=== PATIENT | female | born 1960 | race Caucasian/White ===

== ENCOUNTER → 2016-11-25 | Outpatient (REF) | payer OTHER ==
[2016-11-27 00:06] LABS: Lyme Disease IgG/IgM Antibodie <0.91 ISR (0.00-0.90); Lyme Disease IgM Ab Quantitati <0.80 index (0.00-0.79)
== END ==
LOC: M LAB REF 13:14
PROVIDERS: ATTEND Nurse Practitioner Adult Health
DX: R50.9 Fever, unspecified (principal)

== ENCOUNTER → 2018-12-04 | Outpatient (REF) | payer OTHER | LOC: M LAB LCGH 11:42 | PROVIDERS: ATTEND Nurse Practitioner Adult Health | DX: Z12.4 Encounter for screening for malignant neoplasm of cervix (principal) ==

== ENCOUNTER 2019-07-16 11:33 | Day surgery (SDC) | payer OTHER ==
[~2019-07-16] VITALS: Ht 162.6 cm; Wt 59.9 kg
[~2019-07-16 11:33] MED LIST: B COTAB3 PO; CENT1TAB PO; CITRTAB18 PO; CVS1CAP2 PO; DIPH25CA32 PO; ESTR1CRE VA; MESA1000 PR; NS 1,000 ML IV ONE; QC A10TA PO; RANI1TAB38 PO; REFR0.5D8 OP; SIMILASAN OP; SM F10002 PO; [UNRECOGNIZED DRUG - CODE] OP
--- NOTE | 2019-07-16 13:08 | ROOR ---
Patient Name: Shawna Bravo Procedure Date: 07/16/2019 12:50 PM Date of : 1960 Age: 58 Room: [facility] Gender: Female Note Status: Finalized Procedure: Upper GI endoscopy Indications: Heartburn Providers: Jeffrey SARAVIA MD Referring MD: China Ortiz NP Requesting Provider: Medicines: Monitored Anesthesia Care Complications: No immediate complications. Procedure: Pre-Anesthesia Assessment: - The heart rate, respiratory rate, oxygen saturations, blood pressure, adequacy of pulmonary ventilation, and response to care were monitored throughout the procedure. The Endoscope was introduced through the mouth, and advanced to the second part of duodenum. The upper GI endoscopy was accomplished without difficulty. The patient tolerated the procedure well. Findings: The esophagus was normal. The stomach was normal. The examined duodenum was normal. Impression: - Normal esophagus. - Normal stomach. - Normal examined duodenum. - No specimens collected. Recommendation: - Observe patient's clinical course. - Continue present medications. Jeffrey Saravia MD Jeffrey SARAVIA MD 07/16/2019 1:08:24 PM Electronically signed by Jeffrey SARAVIA MD Number of Addenda: 0 Note Initiated On: 07/16/2019 12:50 PM Estimated Blood Loss: Estimated blood loss: none.
[2019-07-16] MEDS ORDERED: LIDOCAINE 2% INJ 100 MG/5 ML SDV (FOR ANES.) As Ordered ONE (13:11)
[2019-07-16] MEDS ORDERED: PROPOFOL 200 MG/20 ML VIAL As Ordered ONE ×2 (13:11→13:15)
--- NOTE | 2019-07-16 13:35 | ROOR ---
Patient Name: Shawna Bravo Procedure Date: 07/16/2019 12:51 PM Date of : 1960 Age: 58 Room: [facility] Gender: Female Note Status: Finalized Procedure: Colonoscopy Indications: Screening for colorectal malignant neoplasm. (Incidental: History of ulcerative proctitis) Providers: Jeffrey SARAVIA MD Referring MD: China Ortiz NP Requesting Provider: Medicines: Monitored Anesthesia Care Complications: No immediate complications. Procedure: Pre-Anesthesia Assessment: - The heart rate, respiratory rate, oxygen saturations, blood pressure, adequacy of pulmonary ventilation, and response to care were monitored throughout the procedure. The Colonoscope was introduced through the anus and advanced to 10 cm into the ileum. The colonoscopy was performed without difficulty. The patient tolerated the procedure well. The quality of the bowel preparation was adequate and fair. Findings: The perianal and digital rectal examinations were normal. The colon (entire examined portion) was redundant. Multiple medium-mouthed diverticula were found in the sigmoid colon and descending colon. Internal hemorrhoids were found during retroflexion. The hemorrhoids were medium-sized. The exam was otherwise without abnormality on direct and retroflexion views. Biopsies for histology were taken with a cold forceps from the entire colon for evaluation of microscopic colitis. Biopsies were taken with a cold forceps in the rectum for histology. Impression: - Preparation of the colon was fair. - Redundant colon. - Diverticulosis in the sigmoid colon and in the descending colon. - Internal hemorrhoids. - The examination was otherwise normal on direct and retroflexion views. - Ulcerative proctitis is in remission. - Biopsies were taken with a cold forceps from the entire colon and rectum. Recommendation: - Telephone endoscopist for pathology results in 2 weeks. - Repeat colonoscopy in 10 years for screening purposes. Jeffrey Saravia MD Jeffrey SARAVIA MD 07/16/2019 1:34:34 PM Electronically signed by Jeffrey SARAVIA MD Number of Addenda: 0 Note Initiated On: 07/16/2019 12:51 PM Estimated Blood Loss: Estimated blood loss: none.
[2019-07-16 14:00] VITALS: BP 129/62
== END 2019-07-16 14:22 | disposition home or self-care (01) ==
LOC: M OPP 11:33
PROVIDERS: ATTEND Internal Medicine Gastroenterology
DX: Z12.11 Encounter for screening for malignant neoplasm of colon (principal); Z80.0 Family history of malignant neoplasm of digestive organs; Z83.71 Family history of colonic polyps; K64.8 Other hemorrhoids; Q43.8 Other specified congenital malformations of intestine; R12 Heartburn; Z79.899 Other long term (current) drug therapy; Z88.8 Allergy status to other drugs, medicaments and biological substances

== ENCOUNTER → 2020-01-26 | Outpatient (REF) | payer OTHER ==
[~2020-01-26] MED LIST changes: -NS 1,000 ML IV ONE; +SODI1SOL7 OP; -[UNRECOGNIZED DRUG - CODE] OP
== END ==
LOC: M LAB REF 12:13
PROVIDERS: ATTEND Internal Medicine
DX: Z11.59 Encounter for screening for other viral diseases (principal)

== ENCOUNTER → 2020-07-31 | Outpatient (CLI) | payer SELFPAY | LOC: M LABSMTC 15:49 | PROVIDERS: ATTEND Pediatrics | DX: Z20.828 Contact with and (suspected) exposure to other viral communicable diseases (principal) ==

== ENCOUNTER → 2022-08-08 | Outpatient (CLI) | payer OTHER, SELFPAY ==
[~2022-08-08] MED LIST changes: +GNPTAB37 PO; -QC A10TA PO
== END ==
LOC: M SOG 15:36
PROVIDERS: ATTEND Orthopaedic Surgery Hand Surgery
DX: M79.641 Pain in right hand (principal); M25.741 Osteophyte, right hand

== ENCOUNTER → 2022-09-18 | Outpatient (CLI) | payer OTHER ==
[~2022-09-18] MED LIST changes: +ALLE180T33 PO; +BONI1TAB PO; +DIPH-435 PO; -DIPH25CA32 PO; +FAMO20TA PO; +REFR0.5D8 OU; +VITATAB31 PO; +allergy shot; +collagen PO
== END ==
LOC: M LABSMTC 11:32
PROVIDERS: ATTEND Anesthesiology
DX: Z01.812 Encounter for preprocedural laboratory examination (principal); Z20.822 Contact with and (suspected) exposure to COVID-19

== ENCOUNTER 2022-09-23 05:57 | Day surgery (SDC) | payer OTHER ==
[~2022-09-23] VITALS: Ht 160 cm; Wt 62.6 kg
[2022-09-23] MEDS ORDERED: BACITRACIN OINTMENT 30GM TUBE As Ordered ONE (07:15)
[2022-09-23] MEDS ORDERED: BUPIVACAINE HCL 0.25% 30ML VIAL As Ordered ONE (07:15)
[2022-09-23] MEDS ORDERED: ACETAMINOPHEN 1000MG 100ML IV BAG As Ordered ONE (08:10)
[2022-09-23] MEDS ORDERED: LIDOCAINE 2% 100MG/5ML SDV (FOR ANES.) As Ordered ONE (08:10)
[2022-09-23] MEDS ORDERED: KETOROLAC 60MG 2ML VIAL As Ordered ONE (08:10)
[2022-09-23] MEDS ORDERED: fentaNYL 100 MCG/2 ML INJECTION As Ordered ONE (08:10)
[2022-09-23] MEDS ORDERED: DESFLURANE 240 ML INHALANT As Ordered ONE (08:10)
[2022-09-23] MEDS ORDERED: ONDANSETRON 4MG 2ML VIAL As Ordered ONE (08:10)
[2022-09-23] MEDS ORDERED: MIDAZOLAM INJ 2MG/2ML VIAL As Ordered ONE (08:10)
[2022-09-23] MEDS ORDERED: METOCLOPRAMIDE INJ 10MG/2ML VIAL As Ordered ONE (08:10)
[2022-09-23] MEDS ORDERED: propofoL 200 MG/20 ML VIAL As Ordered ONE (08:10)
[2022-09-23] MEDS ORDERED: ONDANSETRON 4MG 2ML VIAL IV PRN (08:40)
[2022-09-23] MEDS ORDERED: fentaNYL 100 MCG/2 ML INJECTION IV PRN (08:40)
[2022-09-23] MEDS ORDERED: oxyCODONE 5MG TAB PO PRN (08:40)
[2022-09-23] MEDS ORDERED: LR 1,000 ML IV SCH (08:40)
[2022-09-23 09:19] VITALS: BP 132/65
== END 2022-09-23 09:55 | disposition home or self-care (01) ==
LOC: M SDC 05:57
PROVIDERS: ATTEND Orthopaedic Surgery Hand Surgery
DX: M71.341 Other bursal cyst, right hand (principal); K21.9 Gastro-esophageal reflux disease without esophagitis; R21 Rash and other nonspecific skin eruption; M81.0 Age-related osteoporosis without current pathological fracture; Z79.899 Other long term (current) drug therapy; Z88.8 Allergy status to other drugs, medicaments and biological substances
CPT/HCPCS: 26160; 88305; J0131; J1100; J1885; J2250; J2405; J2765; J3010; S0020

== ENCOUNTER → 2023-06-30 | Outpatient (CLI) | payer OTHER | LOC: M PLAIMG 06:43 | PROVIDERS: ATTEND Orthopaedic Surgery | DX: S39.012A Strain of muscle, fascia and tendon of lower back, initial encounter (principal); M76.02 Gluteal tendinitis, left hip; S76.012A Strain of muscle, fascia and tendon of left hip, initial encounter; M25.462 Effusion, left knee; M16.12 Unilateral primary osteoarthritis, left hip; M70.62 Trochanteric bursitis, left hip; X58.XXXA Exposure to other specified factors, initial encounter; Y92.9 Unspecified place or not applicable; Y93.9 Activity, unspecified; Y99.9 Unspecified external cause status; M51.26 Other intervertebral disc displacement, lumbar region; M47.816 Spondylosis without myelopathy or radiculopathy, lumbar region ==

== ENCOUNTER 2024-10-12 06:29 | Day surgery (SDC) | payer OTHER ==
[~2024-10-12] VITALS: Ht 161.3 cm; Wt 64.0 kg
[~2024-10-12 06:29] MED LIST changes: +COLL1CAP PO; +CYCL5TAB4 PO; +FLAX1CAP5 PO; +GLYCOPYRROLATE INJ 0.2 MG/ML 2 ML VIAL As Ordered ONE; +IBAN150T10 PO; +LIDOCAINE 2% 100MG/5ML SDV (FOR ANES.) As Ordered ONE; +MELO15TA28 PO; +SENN8.6T58 PO; +ZOLP5TAB PO; +propofoL 200 MG/20 ML VIAL As Ordered ONE
[2024-10-12 08:17] VITALS: BP 148/76; O2SAT 99
== END 2024-10-12 08:20 | disposition home or self-care (01) ==
LOC: M OPP 06:29
PROVIDERS: ATTEND Internal Medicine Gastroenterology
DX: Z12.11 Encounter for screening for malignant neoplasm of colon (principal); K57.30 Diverticulosis of large intestine without perforation or abscess without bleeding; K64.8 Other hemorrhoids; Z83.710 Family history of adenomatous and serrated polyps; Z88.8 Allergy status to other drugs, medicaments and biological substances; Z79.899 Other long term (current) drug therapy
CPT/HCPCS: 45380; 88305; J1596

== ENCOUNTER → 2025-03-23 | Outpatient (REF) | payer OTHER ==
[~2025-03-23] MED LIST changes: -GLYCOPYRROLATE INJ 0.2 MG/ML 2 ML VIAL As Ordered ONE; -LIDOCAINE 2% 100MG/5ML SDV (FOR ANES.) As Ordered ONE; -propofoL 200 MG/20 ML VIAL As Ordered ONE
== END ==
LOC: M LAB REF 16:14
PROVIDERS: ATTEND Surgery
DX: D17.24 Benign lipomatous neoplasm of skin and subcutaneous tissue of left leg (principal); D17.22 Benign lipomatous neoplasm of skin and subcutaneous tissue of left arm